=== PATIENT | female | born 2000 | race Caucasian/White ===

== ENCOUNTER 2024-03-21 17:52 | Emergency (ER) | payer OTHER, BC, SELFPAY ==
[2024-03-21 19:02] VITALS: BP 112/68
[2024-03-21 19:04] LABS: % Basophils 0.1 % (0-2); % Eosinophils 0.1 % (0-6); % Immature Granulocytes 0.6 % (0-0.5); % Monocytes 3.8 % (1.7-9.3); % Neutrophils 87.4 % (42.2-75.2); Absolute Immature Granulocytes 0.1 10^3/uL (0-0.05); Absolute Lymphocytes 1.4 10^3/uL (1.2-3.4); Absolute Monocytes 0.7 10^3/uL (0.1-0.6); Absolute Neutrophils 15.6 10^3/uL (1.4-6.5); Hemoglobin 13.6 g/dL (12.0-16.0); Mean Corpuscular Hgb 29.4 pg (27.0-31.0); Mean Corpuscular Volume 86.6 fL (81.0-99.0); Mean Platelet Volume 10.2 fL (7.4-10.4); Nucleated Red Blood Cells % 0 %; Platelet Count 370 10^3/uL (130-400); Red Blood Cell Count 4.62 10^6/uL (4.20-5.40); Red Cell Dist. Width 13.3 % (11.5-14.5); White Blood Cell Count 17.8 10^3/uL (4.8-10.8)
[2024-03-21 19:12] LABS: ALT (SGPT) 12 U/L (0-35); AST (SGOT) 17 U/L (14-36); Albumin 4.8 g/dl (3.5-5.0); Alkaline Phosphatase 63 U/L (38-126); Blood Urea Nitrogen 18 mg/dl (7-17); Calcium 10.1 mg/dl (8.4-10.2); Carbon Dioxide 27 mmol/L (22-30); Chloride 102 mmol/L (98-107); Glucose 111 mg/dl (70-99); Potassium 4.1 mmol/L (3.5-5.1); Sodium 142 mmol/L (135-145); Total Bilirubin 0.5 mg/dl (0.2-1.3); Total Protein 7.3 g/dl (6.3-8.2); eGFR > 60.00
--- NOTE | 2024-03-21 19:40 | ED.GENMED ---
History of Present Illness
General
Chief Complaint: Dizziness
Source: patient
Time Seen by Provider: 03/21/24 19:14
History of Present Illness
History of Present Illness:
23-year-old female presents to the emergency room at the suggestion of her endocrinology office. Patient has been experiencing lightheadedness, palpitations, chest pain, difficulty performing normal activities for the past several weeks. Patient
has been seen at the endocrinology office where she was treated for possible allergic reaction. She has been taking antihistamines and was prescribed prednisone in addition to her baseline doses of hydrocortisone and Florinef. She does not feel
that there is been any improvement. Patient denies any recent travel. She denies any fever or chills.
Phy Exam
Physical Exam
Physical Exam:
General: Awake, Alert, Oriented X3. No acute distress.
Vitals: unremarkable
Head: Atraumatic
Eyes: Pupils equal, EOMI
Throat: Airway intact, no exudates
Neck: Trachea midline
Lungs: Clear and equal b/l
Heart: Regular rate, no murmurs
Abd: Soft, Nontender, No pulsatile mass
Neuro: Nonfocal
Skin: Warm, dry, no rash
Extremities: pulses equal b/l, no edema
Course
Orders/Labs/Results
Orders:
Orders
03/21/24 17:57
Electrocardiogram (*1) Urgent
Reason for Study: Chest Pain
EKG- Treatment ONCE
03/21/24 18:52
Complete Blood Count/With Diff Urgent
Comprehensive Metabolic Panel Urgent
HCG, Serum Qualitative Screen Urgent
Comment: ADD ON
03/21/24 19:40
Add On- LAB Urgent
Tests Added?: qualitative hcg
CR Chest - 2 Views Urgent
Comment:
Reason For Exam: chest pain
Abnormal Lab Results
03/21/24
18:52
WBC 17.8 H 10^3/uL
(4.8-10.8)
Abs Immat Gran (auto) 0.1 H 10^3/uL
(0-0.05)
Absolute Neuts (auto) 15.6 H 10^3/uL
(1.4-6.5)
Absolute Monos (auto) 0.7 H 10^3/uL
(0.1-0.6)
Immature Gran % 0.6 H %
(0-0.5)
Neutrophils % 87.4 H %
(42.2-75.2)
Lymphocytes % 8.0 L %
(20.5-51.1)
BUN 18 H mg/dl
(7-17)
Glucose 111 H mg/dl
(70-99)
03/21/24 18:52
03/21/24 18:52
Vital Signs
Initial and Last Documented VS:
Initial Vital Signs
Pulse Resp BP
58 18 112/68
03/21/24 19:02 03/21/24 19:02 03/21/24 19:02
Last Documented Vital Signs
Pulse Resp BP Pulse Ox
58 17 100/64 97
03/21/24 21:45 03/21/24 21:45 03/21/24 21:00 03/21/24 21:45
MDM/Problems Addressed
Differential Diagnosis Includes:
Dehydration, electrolyte abnormality,
MDM/Problems Addressed:
Patient's labs are reassuring. Her white count a bit elevated which is likely due to her steroid use. Chest x-ray is unremarkable. Discussed patient's presentation with endocrinology. Recommend increasing hydrocortisone 60 mg 3 times daily.
This recommendation is in addition to the Medrol Dosepak which the patient has been taking for potential allergic reaction. There is no evidence of an unstable process which would require hospitalization. They will follow the patient in few days
to make sure she is having improvement with this new steroid dose
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
*Critical Care Note
Total Time (30-74mins, 75-104mins- exclusive of procedures): Not Applicable
ED Attending Note
-
Portions of this chart may have been created with voice recognition software.� Occasional wrong word or��sound alike� substitutions may have occurred due to the inherent limitations of voice recognition software.
Discharge Plan
Departure
Patient Disposition: Home (Routine Discharge)
Date of Disposition: 03/21/24
Time of Disposition: 21:41
Patient with high blood pressure during this ER visit?: No
Condition: Good
Discharge Problem:
Dizziness
Instructions: [place] Disease (DC), Dizziness
Prescriptions:
New
hydrocortisone 20 mg tablet
60 mg PO TID Qty: 90 0RF
Referrals:
Víctor Loredo MD [Family Provider] -
Activity Restrictions/Additional Instructions:
Increase your hydrocortisone dose to 60mg three times a day for the next week. Call your machine tank operator to inform if this is helping you feel better or not.
Interventions
Interventions:
*Risk Screen - Suicide Last Done: 03/21/24 19:04
*General Assessment Last Done: 03/21/24 19:04
*Neglect/Abuse Screening Last Done: 03/21/24 19:04
ED- Fall Risk Assessment Last Done: 03/21/24 19:04
*ED COVID-19 Vaccine History Last Done: 03/21/24 19:04
*Nursing Disposition Last Done: 03/21/24 21:49
ED- Neurological Assessment Last Done: 03/21/24 19:03
ED- Cardiac Assessment Last Done: 03/21/24 19:03
Discharge Date and Time
Discharge Date/Time: 03/21/24 21:50
Print Language: MALAYSIAN
[2024-03-21 20:00] VITALS: BP 102/66
[2024-03-21 20:23] LABS: HCG, Serum Qualitative Screen Negative
[2024-03-21 21:00] VITALS: BP 100/64
== END 2024-03-21 21:50 | disposition home or self-care (01) ==
LOC: EMR 17:52
PROVIDERS: EMERGENCY PHYSICIAN Emergency Medicine; FAMILY PHYSICIAN Family Medicine
DX: R42 Dizziness and giddiness (principal); R07.9 Chest pain, unspecified; R00.2 Palpitations; E27.1 Primary adrenocortical insufficiency; Z79.899 Other long term (current) drug therapy
CPT/HCPCS: 99284; 71046; 80053; 84703; 85025; 93005